=== PATIENT | female | born 1940 | race Asian ===

== ENCOUNTER → 2016-07-18 | Outpatient (CLI) | payer BC, MEDICARE ==
[~2016-07-18] MED LIST: ALLO100T PO; AMLO10TA80 PO; SEVE800T8 PO
[2016-07-18 07:34] LABS: INR 1.1; PROTHROMBIN TIME 11.4 sec
== END | disposition home or self-care (01) ==
LOC: LAB 06:27
PROVIDERS: ATTEND Internal Medicine Critical Care Medicine
DX: Z12.31 Encounter for screening mammogram for malignant neoplasm of breast (principal); I12.0 Hypertensive chronic kidney disease with stage 5 chronic kidney disease or end stage renal disease; N18.6 End stage renal disease; I42.2 Other hypertrophic cardiomyopathy; M25.511 Pain in right shoulder
CPT/HCPCS: 36415; 73030; 84550; 85049; 85576; 85610; 85730

== ENCOUNTER → 2016-07-27 | Outpatient (CLI) | payer BC, MEDICARE | END | disposition home or self-care (01) | LOC: MAMMO 10:17 | PROVIDERS: ATTEND Internal Medicine Critical Care Medicine | DX: Z12.31 Encounter for screening mammogram for malignant neoplasm of breast (principal) | CPT/HCPCS: G0202 ==

== ENCOUNTER → 2016-11-21 | Outpatient (CLI) | payer MEDICARE | END | disposition home or self-care (01) | LOC: RAD 11:21 | PROVIDERS: ATTEND Internal Medicine Nephrology | DX: Z11.1 Encounter for screening for respiratory tuberculosis (principal); I51.7 Cardiomegaly | CPT/HCPCS: 71010 ==